=== PATIENT | male | born 1950 | race Caucasian/White ===

== ENCOUNTER 2020-01-19 15:12 | Emergency (ER) | payer MEDICARE, MEDICAID, SELFPAY ==
[2020-01-19] VITALS (8 sets, daily range): BP systolic 150–182; BP diastolic 92–107; PULSE 20–64; RESP 16–59; TEMP 36.4–36.6; O2SAT 95–99; BMI 27.8
--- NOTE | 2020-01-19 15:41 | XRR_ITS ---
PROCEDURE INFORMATION: Exam: XR Chest, 1 View Exam date and time: 01/19/2020 3:44 PM Age: 69 years old Clinical indication: Shortness of breath; Patient HX: C/O SOB TECHNIQUE: Imaging protocol: XR of the chest Views: 1 view. COMPARISON: CR Chest 1 [place] [id number] 01/13/2019 7:17 PM FINDINGS: Lungs: There is mild bibasilar ground-glass opacity new since the prior exam compatible with mild pneumonitis versus atelectasis. There is no lobar consolidation. Pulmonary vascularity is within normal limits. Unchanged punctate calcified granulomas are noted in the lungs. Pleural space: Trace left pleural effusion versus pleural thickening is noted. There is no pneumothorax. Heart/Mediastinum: Unremarkable. No cardiomegaly. Bones/joints: No acute abnormality. XR/XR chest 1V portable [id number] IMPRESSION: There is mild bibasilar ground-glass opacity new since the prior exam compatible with mild pneumonitis versus atelectasis.
--- NOTE | 2020-01-19 15:43 | ECG_ITS ---
[facility] Test Date: 2020-01-19 Pat Name: Colton Ramirez Department: Room: Gender: Male Other Sports Official: : 1950 Requested By: Viviana Moraes Order Number: [id number] Carrie MD: Kim Schaefer M.D. Measurements Intervals [place] Rate: 58 P: 83 HI: 122 QRS: -8 QRSD: 100 T: 207 QT: 417 QTc: 411 Interpretive Statements SINUS BRADYCARDIA WITH OCCASIONAL SUPRAVENTRICULAR PREMATURE COMPLEXES MINIMAL VOLTAGE CRITERIA FOR LVH, CONSIDER NORMAL VARIANT [MEETS CRITERIA IN ONE OF: R(aVL), S(V1), R(V5), R(V5/V6)+S(V1)] ST DEVIATION AND MODERATE T-WAVE ABNORMALITY, CONSIDER LATERAL ISCHEMIA [-0.1+ mV T WAVE IN I/aVL/V5/V6] Compared to ECG 11/18/2015 10:51:48 T-wave abnormality now present Possible ischemia now present Sinus rhythm no longer present Electronically Signed On 01-19-2020 17:42:03 CDT by Kim Schaefer M.D. [email or web address]/store/NU/[id number] f
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
[2020-01-19] MEDS: ipratropium-albuterol 3 mL Neb INHALATION (16:02)
[2020-01-19 16:06] LABS: ABG PCO2 31.7 mmHg (35-45); Blood Gas Allen Test Pos; Blood Gas Operator Identificat CAK; Blood Gas Sample Site Radial, left; Blood Gas Sample Type Arterial; HCO3 ABG 24.5 mmol/L (22-26); Oxygen Device ROOM AIR; PO2 ABG 97.8 mmHg (80.0-100.0)
[2020-01-19 16:53] LABS: Basophils % 0.5 %; Eosinophils # 0.2 10^3/uL (0.0-0.8); Eosinophils % 2.2 %; Hematocrit 42.9 % (42.0-52.0); Hemoglobin 15.1 g/dL (11.7-16.6); Lymphocytes # 2.1 10^3/uL (0.8-4.8); Lymphocytes % 26.2 %; Mean Corpuscular HGB Conc 35.2 g/dL (30.0-36.0); Mean Corpuscular Volume 96.6 fL (80-94); Monocytes # 0.9 10^3/uL (0.2-0.9); Monocytes % 10.9 %; Neutrophils # 4.68 10^3/uL (1.8-7.7); Neutrophils % 59.8 %; Nucleated Red Blood Cells % 0 %; Platelet Count 240 10^3/cmm (130-400); Red Blood Count 4.44 10^6/uL (4.1-5.3); Red Cell Distribution Width 12.5 % (12.1-15.1); White Blood Count 7.8 10^3/uL (4.0-10.0)
[2020-01-19 17:16] LABS: Troponin(5th) Baseline 10 ng/L (0-15)
--- NOTE | 2020-01-19 17:27 | PC.NURSE ---
Pt moved to room 8.
[2020-01-19 17:31] LABS: Alanine Aminotransferase 20 U/L (0-41); Albumin Level 4.6 g/dL (3.5-5.2); Alkaline Phosphatase 121 IU/L (40-130); Aspartate Amino Transferase 15 U/L (0-40); Blood Urea Nitrogen 14 mg/dL (8-23); Calcium 9.4 mg/dL (8.5-10.5); Carbon Dioxide 26 mmol/L (22-29); Chloride 88 mmol/L (98-107); Creatinine Clr Calc Pharmacy 103.2484; Globulin 2.4 g/dL (1.3-4.6); Glomerular Filtration Rate 96.4 mL/min (90-130); Glucose 102 mg/dL (65-115); NT Pro B Type Natriuretic Pept 359 pg/mL (0-125); Osmolality Calculated 261 mOsm/kg (285-295); Sodium 125 mmol/L (136-145); Total Bilirubin 0.4 mg/dL (0.15-1.2)
[2020-01-19 17:37] LABS: Add Urine Microscopic? NO
--- NOTE | 2020-01-19 17:43 | ECG_ITS ---
[facility] Test Date: 2020-01-19 Pat Name: Colton Ramirez Department: Room: Gender: Male Cable Tool Driller: : 1950 Requested By: Viviana Moraes Order Number: [id number] Carrie MD: Kim Schaefer M.D. Measurements Intervals [place] Rate: 58 P: 70 MA: 136 QRS: 1 QRSD: 97 T: 44 QT: 395 QTc: 388 Interpretive Statements SINUS BRADYCARDIA Compared to ECG 01/19/2020 15:34:56 T-wave abnormality no longer present Possible ischemia no longer present Electronically Signed On 01-20-2020 18:37:38 CDT by Kim Schaefer M.D. [id number]
[2020-01-19 17:49] LABS: Bilirubin Urine Neg (Negative); Blood Urine Neg (Negative); Glucose Urine UA Norm (Normal); Ketones Urine Negative (Negative); Leukocyte Esterase Urine Negative (Negative); Nitrate Urine Negative (Negative); Protein Urine Neg (Negative); Sulfosalicylic Acid Urine Negative (Negative); Urine Appearance Clear (CLEAR); Urine Color Yellow (Yellow); Urobilinogen Urine Norm (Negative); pH Urine 8 (5-7)
[2020-01-19 18:53] LABS: Troponin 5 2HR 9.67 ng/L (0-15)
[2020-01-19 18:55] LABS: Troponin 5 2HR Delta -0.33 ABS# (0-10)
--- NOTE | 2020-01-19 19:45 | PC.NURSE ---
voided 700 ml clear yellow urine
== END 2020-01-19 20:35 | disposition home or self-care (01) ==
PROVIDERS: Emergency Provider Emergency Medicine
DX: J40 Bronchitis, not specified as acute or chronic (principal); E87.1 Hypo-osmolality and hyponatremia
CPT/HCPCS: 12345; 36415; 36600; 71045; 80053; 81003; 82803; 83880; 84484; 85025; 93005; 94640; 96374; 96375; 99283; 99284; J2930

== ENCOUNTER → 2020-03-24 15:22 | Outpatient (BNVA) | payer MEDICARE, MEDICAID, SELFPAY | PROVIDERS: Referring Provider Nurse Practitioner Family; Visit Provider Podiatrist Foot & Ankle Surgery | DX: M79.671 Pain in right foot (principal); M79.672 Pain in left foot; M89.472 Other hypertrophic osteoarthropathy, left ankle and foot; M89.471 Other hypertrophic osteoarthropathy, right ankle and foot | CPT/HCPCS: 73630 ==

== ENCOUNTER 2021-04-29 16:59 | Emergency (ER) | payer MEDICARE, MEDICAID, SELFPAY ==
--- NOTE | 2021-04-29 17:07 | ECG_ITS ---
[facility] Test Date: 2021-04-29 Pat Name: Colton Ramirez Department: Room: Gender: Male Clinic Cma: : 1950 Requested By: Bobby Tomlinson Order Number: [id number] Carrie MD: Mukund Medeiros M.D. Measurements Intervals [place] Rate: 83 P: 91 MS: 140 QRS: 26 QRSD: 96 T: 57 QT: 360 QTc: 423 Interpretive Statements SINUS RHYTHM WITH FREQUENT SUPRAVENTRICULAR PREMATURE COMPLEXES NONSPECIFIC T-WAVE ABNORMALITY ABNORMAL RHYTHM ECG Compared to ECG 01/19/2020 19:03:19 T-wave abnormality now present Sinus bradycardia no longer present Electronically Signed On 04-29-2021 17:51:54 SCHOOL INSPECTOR by Mukund Medeiros M.D. [id number]
[2021-04-29 17:37] VITALS: BP 157/77; PULSE 75; RESP 18; TEMP 36.9; O2SAT 97; BMI 21.6
[2021-04-29 17:46] LABS: Basophils % 0.3 %; Eosinophils % 0.2 %; Hematocrit 40.3 % (42.0-52.0); Hemoglobin 14.1 g/dL (11.7-16.6); Lymphocytes # 1.4 10^3/uL (0.8-4.8); Lymphocytes % 22.8 %; Mean Corpuscular Hemoglobin 33.6 pg (28.0-34.0); Mean Platelet Volume 8.9 fL (7.4-10.4); Monocytes # 0.8 10^3/uL (0.2-0.9); Monocytes % 13.1 %; Neutrophils # 3.78 10^3/uL (1.8-7.7); Neutrophils % 63.4 %; Nucleated Red Blood Cells % 0 %; Platelet Count 236 10^3/cmm (130-400); Red Cell Distribution Width 12.6 % (12.1-15.1)
[2021-04-29 18:14] LABS: Troponin(5th) Baseline 19 ng/L (0-15)
[2021-04-29 18:21] LABS: Alanine Aminotransferase 22 U/L (0-41); Albumin Level 4.2 g/dL (3.5-5.2); Alkaline Phosphatase 96 IU/L (40-130); Anion Gap 20.8 (5-19); Aspartate Amino Transferase 22 U/L (0-40); Blood Urea Nitrogen 21 mg/dL (8-23); Calcium 8.5 mg/dL (8.5-10.5); Carbon Dioxide 18 mmol/L (22-29); Chloride 94 mmol/L (98-107); Globulin 2.1 g/dL (1.3-4.6); Glomerular Filtration Rate 83.9 mL/min (90-130); Glucose 102 mg/dL (65-115); Magnesium 1.7 mg/dL (1.7-2.3); Osmolality Calculated 271 mOsm/kg (285-295); Potassium 3.8 mmol/L (3.5-5.1); Sodium 129 mmol/L (136-145); Thyroid Stimulating Hormone 1.11 uIU/mL (0.27-4.20); Total Bilirubin 0.2 mg/dL (0.15-1.2); Total Protein 6.3 g/dL (6.6-8.7)
[2021-04-29 20:09] LABS: Troponin 5 2HR 19.78 ng/L (0-15); Troponin 5 2HR Delta 0.78 ABS# (0-10)
--- NOTE | 2021-04-29 21:39 | W.ED.CHESTPA ---
HPI - Chest Pain General: Chief Complaint: Chest Pain Stated Complaint: Heart beat out of Rhythm\Dizzy Time Seen by Provider: 04/29/21 21:39 History of Present Illness: HPI narrative: Patient was referred to the ER by his primary care for concerns of irregular heart rhythm. Patient states that he was at her office last week and then again this week and she noticed the difference in his heart rhythm. She thought he needed to have further evaluation in the emergency room. Patient denies any chest pain or shortness of breath. Patient appears well. Patient does have a history of hypertension and chronic pain syndrome. Patient is a routine smoker. Review of Systems Card: Reports: irregular heart rhythm [facility] ED PFSH: Medical History (Updated 04/29/21 @ 22:02 by VERONICA Cardoza) Hypertension Peripheral neuropathy Social History (Updated 03/24/20 @ 15:32 by Kaylie Reagan LPN) Smoking and tobacco status: current every day smoker Alcohol intake: never Household members: none Physical Exam Const: COMMON NORMALS: average body habitus, patient oriented x3 and alert HENMT: COMMON NORMALS: normocephalic HEAD & SCALP: normocephalic Resp: COMMON NORMALS: normal respiratory effort and clear to auscultation bilaterally EFFORT & INSPECTION: Yes able to speak in complete sentences AUSCULTATION: clear to auscultation bilaterally Cardio: COMMON NORMALS: regular rate RATE: regular rate RHYTHM: abnormal rhythm irregularly irregular GI: COMMON NORMALS: Soft to palpation AUSCULTATION: Yes normoactive bowel sounds PALPATION: Yes Soft to palpation Extremity: COMMON NORMALS: no pedal edema Neuro: COMMON NORMALS: patient oriented x3 SENSORIUM/ORIENTATION: Yes alert Psych: COMMON NORMALS: cooperative Skin: COMMON NORMALS: no rashes or lesions noted GENERAL SKIN EXAM: no rashes or lesions noted Course ED course: 2099, reviewed second EKG with Dr. Heller. Is noted to have atrial fibrillation. His first EKG showed a sinus rhythm. Due to the history noted in HPI suspect patient probably has paroxysmal atrial fibrillation. Dr. Heller recommended we talk with cardiology for further recommendations of treatment. 2114, talk with Dr. Schaefer, security administrator, regarding patient's new onset paroxysmal atrial fibrillation. No signs of severe distress is noted at this time patient is resting comfortably. No signs of heart failure is noted. She recommended that we go ahead and set patient up for a outpatient echocardiogram, start him on some metoprolol tartrate 5 mg daily, and recommended anticoagulation due to his risks relating to his age and hypertension. Vital Signs: Vital signs: Vital Signs Temperature 98.5 F 04/29/21 17:37 Pulse Rate 75 04/29/21 17:37 Respiratory Rate 18 04/29/21 17:37 Blood Pressure 157/77 04/29/21 17:37 Pulse Oximetry 97 04/29/21 17:37 MDM - Chest Pain MDM Narrative: Medical decision making narrative: Patient was sent over by his primary care for irregular rhythm. On exam patient does have some irregular rhythm of the heart with a normal rate. No edema is noted and lungs were clear to auscultation. Patient denied any pain. Vital signs were normal. Differential diagnosis includes but not limited to PVCs, atrial fibrillation, ACS. Laboratory values were unremarkable. Chest x-ray showed no abnormalities. We diagnosed patient with atrial fibrillation paroxysmal and started patient on metoprolol tartrate and apixaban. Patient was set for outpatient echocardiogram for further evaluation of the heart and to rule out a clot in the chambers. Patient will have close follow-up with cardiology, Dr. Schaefer. Reviewed the plan with patient who agreed. Lab Data: Labs: Lab Results 04/29/21 04/29/21 04/29/21 17:30 17:30 17:30 WBC 6.0 10^3/uL 10^3/ uL (4.0-10.0) RBC 4.20 10^6/uL 10^6 /uL (4.1-5.3) Hgb 14.1 g/dL g/dL (11.7-16.6) Hct 40.3 % L % (42.0-52.0) MCV 96.0 fl H fl (80-94) MCH 33.6 pg pg (28.0-34.0) MCHC 35.0 g/dL g/dL (30.0-36.0) RDW 12.6 % % (12.1-15.1) Plt Count 236 10^3/cmm 10^3 /cmm (130-400) MPV 8.9 fL fL (7.4-10.4) Neut % (Auto) 63.4 % % Lymph % (Auto) 22.8 % % Sampson % (Auto) 13.1 % % Eos % (Auto) 0.2 % % Baso % (Auto) 0.3 % % Neut # (Auto) 3.78 10^3/uL 10^3 /uL (1.8-7.7) Lymph # (Auto) 1.4 10^3/uL 10^3/ uL (0.8-4.8) Sampson # (Auto) 0.8 10^3/uL 10^3/ uL (0.2-0.9) Eos # (Auto) 0.0 10^3/uL 10^3/ uL (0.0-0.8) Baso # (Auto) 0.0 10^3/uL 10^3/ uL (0.0-0.1) Nucleated RBC % (a uto) 0 % % Nucleated RBCs # 0.0 /100WBC /100W BC Sodium 129 mmol/L L mmol /L (136-145) Potassium 3.8 mmol/L mmol/L (3.5-5.1) Chloride 94 mmol/L L mmol/ L (98-107) Carbon Dioxide 18 mmol/L L mmol/ L (22-29) Anion Gap 20.8 H (5-19) BUN 21 mg/dL mg/dL (8-23) Creatinine 0.9 mg/dL mg/dL (0.7-1.2) GFR Calculation 83.9 mL/min L mL/ min (90-130) Glucose 102 mg/dL mg/dL (65-115) Calculated Osmolal ity 271 mOsm/kg L mOs m/kg (285-295) Calcium 8.5 mg/dL mg/dL (8.5-10.5) Magnesium 1.7 mg/dL mg/dL (1.7-2.3) Total Bilirubin 0.2 mg/dL mg/dL (0.15-1.2) AST 22 U/L U/L (0-40) ALT 22 U/L U/L (0-41) Alkaline Phosphata se 96 IU/L IU/L (40-130) Troponin T Baselin e 19 ng/L H ng/L (0-15) Troponin T 120 Min [place] Delta Troponin T Total Protein 6.3 g/dL L g/dL (6.6-8.7) Albumin 4.2 g/dL g/dL (3.5-5.2) Globulin 2.1 g/dL g/dL (1.3-4.6) TSH 1.11 uIU/mL uIU/m L (0.27-4.20) 04/29/21 19:37 WBC RBC Hgb Hct MCV MCH MCHC RDW Plt Count MPV Neut % (Auto) Lymph % (Auto) Sampson % (Auto) Eos % (Auto) Baso % (Auto) Neut # (Auto) Lymph # (Auto) Sampson # (Auto) Eos # (Auto) Baso # (Auto) Nucleated RBC % (a uto) Nucleated RBCs # Sodium Potassium Chloride Carbon Dioxide Anion Gap BUN Creatinine GFR Calculation Glucose Calculated Osmolal ity Calcium Magnesium Total Bilirubin AST ALT Alkaline Phosphata se Troponin T Baselin e Troponin T 120 Min [place] 19.78 ng/L H ng/L (0-15) Delta Troponin T 0.78 ABS# ABS# (0-10) Total Protein Albumin Globulin TSH Discharge Plan Discharge Patient Disposition: Home Clinical Impression: Paroxysmal atrial fibrillation Condition: Stable Prescriptions: New Eliquis 5 mg tablet 5 mg PO BID Qty: 60 RF: 0 metoprolol succinate 25 mg tablet extended release 24 hr 25 mg PO DAILY Qty: 30 RF: 0 No Action gabapentin 600 mg tablet 600 mg PO TID RF: 0 hydralazine 50 mg tablet 50 mg PO TID RF: 0 clonidine HCl 0.1 mg tablet 0.05 mg PO BID RF: 0 carbamazepine [Tegretol] 200 mg tablet 200 mg PO BID Qty: 60 RF: 1 prednisone 10 mg tablets,dose pack See Rx Instructions .ROUTE .COMPLEX Qty: 21 RF: 0 Discharge Orders: Discharge ED (Routine); Ordered 04/29/21 Ordered By: Bobby Levin Discharge Diet: Usual diet Discharge Activity: Increase activity as tolerated Patient Instructions: A-fib (Atrial Fibrillation) (ED), Opioid Safety Activity Restrictions/Additional Instructions: Home and rest. Take medication as directed. Drink plenty of water with medication. Follow-up with primary care for further instruction. Case management will contact you with appointment with security administrator. Return to the ER for chest pain, increased shortness of breath, or new concerns. Coding Level of Care Code ED Treer for Stephen Quiles
--- NOTE | 2021-04-29 22:20 | PC.NURSE ---
PO medication given prior to d/c, Red [employer] App systems under problems. Hand written MAR filled out and will be scanned into chart
--- NOTE | 2021-04-29 23:07 | ECG_ITS ---
[facility] Test Date: 2021-04-29 Pat Name: Colton Ramirez Department: Room: Gender: Male Visual Display Manager: : 1950 Requested By: Bobby Tomlinson Order Number: [id number] Carrie MD: Kim Schaefer M.D. Measurements Intervals [place] Rate: 92 P: [place]: QRS: 22 QRSD: 98 T: 48 QT: 364 QTc: 451 Interpretive Statements SINUS RHYTHM WITH FREQUENT SUPRAVENTRICULAR PREMATURE COMPLEXES MODERATE ST DEPRESSION [0.05+ mV ST DEPRESSION] Compared to ECG 04/29/2021 17:25:40 ST (T wave) deviation now present T-wave abnormality no longer present Electronically Signed On 04-30-2021 19:21:50 INSPECTOR ASSEMBLIES AND INSTALLATIONS by Kim Schaefer M.D. [id number]
--- NOTE | 2021-04-30 11:51 | DCPLANNER ---
Addendum entered by Lidia Silverman 06/25/21 09:12: Patient had an outpatient echo scheduled for 06.22.21 - patient did attend appointment. Addendum entered by Lidia Silverman 05/15/21 11:25: Patient had a follow up appointment scheduled for 05.11.21 with [facility], Dr. Schaefer - patient did attend appointment. Original Note: manager qa had message to schedule a follow up appointment for patient with [facility] and an echo cardiogram. manager qa called [facility], spoke with Ana Cristina, gave clinic patients information. A follow up appointment was scheduled for Tuesday May 11, 2021 at 10:[address] Schaefer. manager qa called patient with appointment information.. manager qa also had order to schedule an outpatient echo cardiogram for patient. An outpatient order was faxed to centralized scheduling, who will call patient with appointment information.
== END 2021-04-29 22:21 | disposition home or self-care (01) ==
PROVIDERS: Emergency Provider Nurse Practitioner Family
DX: I48.0 Paroxysmal atrial fibrillation (principal); I10 Essential (primary) hypertension; G89.4 Chronic pain syndrome; G62.9 Polyneuropathy, unspecified; F17.200 Nicotine dependence, unspecified, uncomplicated
CPT/HCPCS: 36415; 80053; 83735; 84443; 84484; 85025; 93005; 99283

== ENCOUNTER 2021-06-22 10:11 | Outpatient (CLI) | payer MEDICARE, MEDICAID, SELFPAY ==
--- NOTE | 2021-06-22 10:16 | USCV_ITS ---
Colton Ramirez Age: 70 Gender: M : 1950 Exam Date: 06/22/2021 10:32 Ordering Phys: Bobby Levin Technologist: SAM Exam Location: [facility] – [place] Indication: Afib BP: 168 / 78 HR: 51 Rhythm: Sinus Technical Quality: Adequate MEASUREMENTS (Male / Female) Normal Values 2D ECHO LV Diastolic Diameter PLAX 2.9 cm 4.2 - 5.9 / 3.9 - 5.3 cm LV Systolic Diameter PLAX 1.8 cm IVS Diastolic Thickness 1.3 cm 0.6 - 1.0 / 0.6 - 0.9 cm IVS Systolic Thickness 1.7 cm LVPW Diastolic Thickness 1.2 cm 0.6 - 1.0 / 0.6 - 0.9 cm LVPW Systolic Thickness 1.4 cm RV Chamber Size 2.2 cm LVOT Diameter 2.1 cm LV Ejection Fraction 2D Teich 73.0 % LV Ejection Fraction MOD 2C 70.9 % LV Ejection Fraction 2C AL 71.3 % LA Diameter 3.2 cm LA Width 4.2 cm LA Height 5.8 cm RA Width 2.9 cm RA Height 5.5 cm Aorta at Sinotubular Diameter 2.7 cm M-MODE Aortic Annulus Diameter 3.6 cm LA Ao Ratio MM 0.9 MV E Point Septal Separation 0.5 cm DOPPLER AV Peak Velocity 186.0 cm/s LVOT Peak Velocity 118.0 cm/s AV Area Cont Eq vti 2.3 cm squared AV Area Cont Eq pk 2.1 cm squared MV Area PHT 4.1 cm squared Mitral E to A Ratio 1.6 MV E' Velocity 37.0 cm/s Mitral E to MV E' Ratio 6.7 Mitral E to LV E' Lateral Ratio 5.8 Mitral E to LV E' Septal Ratio 8.1 TR Peak Velocity 171.8 cm/s TR Peak Gradient 11.8 mmHg TR Mean Velocity 181.2 cm/s TR Mean Gradient 14.0 mmHg TR Velocity Time Integral 76.3 cm TV Peak E Velocity 72.0 cm/s Right Atrial Pressure 3.0 mmHg Pulmonary Artery Systolic Pressu 14.8 mmHg PV Peak Velocity 95.0 cm/s RV Acceleration Time 0.1 s RV Ejection Time 0.3 s RV AcT/ET 0.4 FINDINGS Left Ventricle Normal left ventricular size, systolic function and wall thickness, with no regional wall motion abnormalities. Left ventricular ejection fraction is estimated at 66 %. Normal diastolic function. Right Ventricle Normal right ventricular size and systolic function. Right ventricular systolic pressure 23 mmHg. Right Atrium Normal right atrial size. Left Atrium Normal left atrial size. Mitral Valve Mild mitral annular calcification. Mildly thickened mitral valve. No mitral valve stenosis. Trace mitral valve regurgitation. Aortic Valve Mildly thickened and trileaflet aortic valve. No aortic valve stenosis. No aortic valve regurgitation. Tricuspid Valve Structurally normal tricuspid valve. No tricuspid valve stenosis. Trace tricuspid valve regurgitation. Pulmonic Valve Structurally normal pulmonic valve. No pulmonary valve stenosis. Trace pulmonary valve regurgitation. Pericardium No pericardial effusion. Aorta Normal size aortic root and proximal ascending aorta. Normal sized inferior vena cava. CONCLUSIONS 1. Normal left ventricular size, systolic function and wall thickness, with no regional wall motion abnormalities. Left ventricular ejection fraction is estimated at 66 %. Normal diastolic function. 2. Normal right ventricular size and systolic function. 3. No significant valvular abnormality. 4. Pulmonary artery pressure estimated at 23 mm Hg. 5. No prior similar studies to compare. Kim Schaefer MD (Electronically Signed) Final Date: 28 June 2021 11:47 S
== END 2021-06-22 10:12 | disposition home or self-care (01) ==
LOC: RAD 10:12
PROVIDERS: PCP Family Medicine; Visit Provider Nurse Practitioner Family
DX: I48.91 Unspecified atrial fibrillation (principal)
CPT/HCPCS: 93306

== ENCOUNTER 2022-04-03 14:08 | Emergency (ER) | payer MEDICARE, MEDICAID, SELFPAY ==
[2022-04-03 14:12] VITALS: BP 125/74; PULSE 67; RESP 22; TEMP 35.8; O2SAT 97; BMI 22.4
--- NOTE | 2022-04-03 14:40 | ECG_ITS ---
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 Measurements Intervals Ayden Rate: 84 P: 0 NM: 0 QRS: 37 QRSD: 97 T: 38 QT: 357 QTc: 423 Interpretive Statements ATRIAL FIBRILLATION WITH ABERRANT CONDUCTION OR VENTRICULAR PREMATURE COMPLEXES ABNORMAL RHYTHM ECG Compared to ECG 04/29/2021 21:32:20 Ventricular premature complex(es) now present Aberrant conduction of supraventricular beat(s) now present Sinus rhythm no longer present ST (T wave) deviation no longer present Electronically Signed On 04-04-2022 8:19:49 [employer] by Kim Schaefer M.D. [email or web address]
--- NOTE | 2022-04-03 14:44 | PC.NURSE ---
EKG completed in triage and shown to Dr. Renteria prior to placing in chart
--- NOTE | 2022-04-03 14:58 | XRR_ITS ---
PROCEDURE INFORMATION: Exam: XR Chest Exam date and time: 04/03/2022 3:09 PM Age: 71 years old Clinical indication: Cough; Additional info: SOB TECHNIQUE: Imaging protocol: Radiologic exam of the chest. Views: 1 view. COMPARISON: CR XR chest 1V portable [id number] 01/19/2020 3:53 PM FINDINGS: Lungs: Unremarkable. No consolidation. Pleural spaces: Unremarkable. No pleural effusion. No pneumothorax. Heart/Mediastinum: Unremarkable. No cardiomegaly. Bones/joints: Unremarkable. XR/XR chest 1V portable [id number] IMPRESSION: No acute findings.
[2022-04-03 15:11] LABS: Basophils % 0.5 %; Eosinophils # 0.1 10^3/uL (0.0-0.8); Eosinophils % 1.4 %; Hematocrit 44.1 % (42.0-52.0); Hemoglobin 15.3 g/dL (11.7-16.6); Lymphocytes # 1.5 10^3/uL (0.8-4.8); Lymphocytes % 24.1 %; Mean Corpuscular HGB Conc 34.7 g/dL (30.0-36.0); Mean Corpuscular Hemoglobin 32.1 pg (28.0-34.0); Mean Corpuscular Volume 92.6 fl (80-94); Monocytes # 0.9 10^3/uL (0.2-0.9); Monocytes % 13.9 %; Neutrophils # 3.73 10^3/uL (1.8-7.7); Neutrophils % 59.6 %; Nucleated Red Blood Cells % 0 %; Platelet Count 283 10^3/cmm (130-400); Red Blood Count 4.76 10^6/uL (4.1-5.3); White Blood Count 6.3 10^3/uL (4.0-10.0)
--- NOTE | 2022-04-03 15:41 | ED_ITS ---
HPI - SOB/Dyspnea General: Chief Complaint: Shortness of Breath/Dyspnea Stated Complaint: SOB Time Seen by Provider: 04/03/22 15:24 Source: patient and other History of Present Illness: HPI Narrative: 71-year-old male who presents to the emergency room with complaints of shortness of breath. He states has been short of breath for the last 3 weeks he did seem to be getting worse. He was seen by his primary care doctor put on steroids and oral antibiotics cough worsens when he lays down. MD elicited complaint: shortness of breath and cough Pertinent past history: COPD Onset (ago): week(s) (3) Timing: intermittent Severity: mild Exacerbating factors: exertion and coughing Relieving factors: nothing Known history of: COPD Associated symptoms: Deny abdominal pain, chest congestion, chest pain, cough, diaphoresis, dizziness, extremity pain, fever(s), hemoptysis, lightheadedness, myalgias, nausea, orthopnea, palpitations, paresthesias, polydipsia, polyuria, rash, sense of impending doom, syncope or vomiting Treatment prior to arrival: other (Antibiotics and steroids) Review of Systems Const: Denies: fever(s) or diaphoresis Card: Denies: chest pain, palpitations, lightheadedness, syncope or orthopnea Resp: Denies: hemoptysis or chest congestion GI: Denies: abdominal pain, nausea or vomiting Musc: Denies: extremity pain Neuro: Denies: dizziness Endo: Denies: polyuria or polydipsia PFSH ED PFSH: Medical History Hypertension PAC (premature atrial contraction) Peripheral neuropathy Social History Smoking and tobacco status: current every day smoker Alcohol intake: never Household members: none Physical Exam Const: GENERAL APPEARANCE: cooperative and comfortable ORIENTATION/CONSCIOUSNESS: Yes awake, Yes oriented to person, Yes oriented to place and Yes oriented to time HENMT: COMMON NORMALS: normocephalic, atraumatic, hearing grossly normal bilaterally, external ears normal, EAC's normal, TM's normal bilaterally, Normal nasal mucous membranes and turbinates present, moist oral mucous membranes and oropharynx normal HEAD & SCALP: normocephalic and atraumatic NOSE: Normal nasal mucous membranes and turbinates present EXTERNAL EAR: Yes external ears normal EXTERNAL AUDITORY CANAL: EAC's normal TYMPANIC MEMBRANE: TM's normal bilaterally Eye: COMMON NORMALS: Equal, round and reactive pupils present, EOMs intact bilaterally, conjunctivae normal and no scleral icterus CONJUNCTIVA: Yes conjunctivae normal PUPIL: Yes Equal, round and reactive pupils present Neck/C-Spine: COMMON NORMALS: full ROM, no lymphadenopathy, supple and no JVD Lymph: LYMPHATIC: no lymphadenopathy noted and no lymphedema noted Resp: COMMON NORMALS: normal respiratory effort, No retractions and No use of accessory muscles AUSCULTATION: rhonchi and wheezes Cardio: COMMON NORMALS: no JVD, regular rate, regular rhythm and No murmurs present (Cardio) RATE: regular rate RHYTHM: regular rhythm GI: COMMON NORMALS: Soft to palpation and No hepatosplenomegaly present AUSCULTATION: Yes normoactive bowel sounds PALPATION: Yes Soft to palpation, No Tenderness to palpation present (GI), No Guarding due to palpation present (GI) and Yes No hepatosplenomegaly present Extremity: COMMON NORMALS: normal to inspection, capillary refill normal, no clubbing, cyanosis or edema, no calf tenderness and no pedal edema Neuro: SENSORIUM/ORIENTATION: Yes oriented to person, Yes oriented to place and Yes oriented to time Skin: COMMON NORMALS: no rashes or lesions noted GENERAL SKIN EXAM: no rashes or lesions noted Course Vital Signs: Vital signs: Vital Signs Temperature 96.5 F L 04/03/22 14:12 Pulse Rate 95 04/03/22 15:54 Respiratory Rate 18 04/03/22 15:54 Blood Pressure 126/85 04/03/22 15:54 Pulse Oximetry 95 04/03/22 15:54 Oxygen Delivery Me thod 04/03/22 15:54 MDM - SOB/Dyspnea Medical Decision Making Acute exacerbation of COPD with no evidence of pneumonia. We will start patient on Spiriva as well as albuterol. Steroid taper follow-up with his primary care doctor within the next week for further adjustment of medications may need long-acting beta agonist inhaled corticosteroid combination. Medical Records I reviewed the patient's medical records. Lab Data I reviewed the patient's lab results. 04/03/22 15:00 04/03/22 15:00 Labs/Radiology: Radiology Impressions Chest X-Ray 04/03/22 14:58 IMPRESSION: No acute findings. Laboratory Results WBC 6.3 10^3/uL (4.0-10.0) 04/03/22 15:00 RBC 4.76 10^6/uL (4.1-5.3) 04/03/22 15:00 Hgb 15.3 g/dL (11.7-16.6) 04/03/22 15:00 Hct 44.1 % (42.0-52.0) 04/03/22 15:00 MCV 92.6 fl (80-94) 04/03/22 15:00 MCH 32.1 pg (28.0-34.0) 04/03/22 15:00 MCHC 34.7 g/dL (30.0-36.0) 04/03/22 15:00 RDW 12.0 % (12.1-15.1) L 04/03/22 15:00 Plt Count 283 10^3/cmm (130-400) 04/03/22 15:00 MPV 9.0 fL (7.4-10.4) 04/03/22 15:00 Neut % (Auto) 59.6 % 04/03/22 15:00 Lymph % (Auto) 24.1 % 04/03/22 15:00 Marion % (Auto) 13.9 % 04/03/22 15:00 Eos % (Auto) 1.4 % 04/03/22 15:00 Baso % (Auto) 0.5 % 04/03/22 15:00 Neut # (Auto) 3.73 10^3/uL (1.8-7.7) 04/03/22 15:00 Lymph # (Auto) 1.5 10^3/uL (0.8-4.8) 04/03/22 15:00 Marion # (Auto) 0.9 10^3/uL (0.2-0.9) 04/03/22 15:00 Eos # (Auto) 0.1 10^3/uL (0.0-0.8) 04/03/22 15:00 Baso # (Auto) 0.0 10^3/uL (0.0-0.1) 04/03/22 15:00 Nucleated RBC % (auto) 0 % 04/03/22 15:00 Nucleated RBCs # 0.0 /100WBC 04/03/22 15:00 Sodium 131 mmol/L (136-145) L 04/03/22 15:00 Potassium 3.4 mmol/L (3.5-5.1) L 04/03/22 15:00 Chloride 97 mmol/L (98-107) L 04/03/22 15:00 Carbon Dioxide 26 mmol/L (22-29) 04/03/22 15:00 Anion Gap 11.4 (5-19) 04/03/22 15:00 BUN 21 mg/dL (8-23) 04/03/22 15:00 Creatinine 1.0 mg/dL (0.7-1.2) 04/03/22 15:00 GFR Calculation 74.1 mL/min (90-130) L 04/03/22 15:00 Glucose 116 mg/dL (65-115) H 04/03/22 15:00 Calculated Osmolality 276 mOsm/kg (285-295) L 04/03/22 15:00 Calcium 9.7 mg/dL (8.5-10.5) 04/03/22 15:00 Total Bilirubin 0.7 mg/dL (0.15-1.2) 04/03/22 15:00 AST 16 U/L (0-40) 04/03/22 15:00 ALT 20 U/L (0-41) 04/03/22 15:00 Alkaline Phosphatase 87 U/L (40-130) 04/03/22 15:00 NT-Pro-B Natriuret Pep 591 pg/mL (0-125) H 04/03/22 15:00 Total Protein 6.9 g/dL (6.6-8.7) 04/03/22 15:00 Albumin 4.0 g/dL (3.5-5.2) 04/03/22 15:00 Globulin 2.9 g/dL (1.3-4.6) 04/03/22 15:00 Coronavirus 229E (PCR) Not detected (NOT DETECT) 04/03/22 15:43 SARS-CoV-2 (PCR) Not detected (NOT DETECT) 04/03/22 15:43 Discharge Plan Discharge Patient Disposition: Home Clinical Impression: Acute exacerbation of chronic obstructive airways disease Condition: Stable Prescriptions: New Medrol (Horace) 4 mg tablets,dose pack See Rx Instructions .ROUTE .COMPLEX Qty: 21 0RF Rx Instructions: orally per package directions albuterol sulfate 90 mcg/actuation HFA aerosol inhaler 2 inh INHALATION Q4H PRN (Reason: shortness of breath or wheezing) Qty: 18 0RF Spiriva Respimat 1.25 mcg/actuation mist 2 inh inhalation DAILY Qty: 4 0RF No Action gabapentin 600 mg tablet 600 mg PO TID clonidine HCl 0.1 mg tablet 0.05 mg PO BID hydralazine 50 mg tablet 50 mg PO BID prednisone 10 mg tablets,dose pack See Rx Instructions PO .COMPLEX PRN Rx Instructions: orally per package directions PO PRN; furosemide 20 mg tablet 20 mg PO PRN (Reason: edema) Eliquis 5 mg tablet 5 mg PO BID Qty: 180 1RF metoprolol succinate 50 mg tablet extended release 24 hr 50 mg PO DAILY Qty: 30 1RF Rx Instructions: Must have follow-up for further refills Discharge Orders: Discharge ED (Routine); Ordered 04/03/22 Ordered By: Alvarez Caba Referrals: Mychal Dickerson MD [Primary Care Provider] - Discharge Diet: Usual diet Discharge Activity: Increase activity as tolerated Patient Instructions: COPD (Chronic Obstructive Pulmonary Disease) (ED), Opioid Safety, Pain Management Activity Restrictions/Additional Instructions: You were seen for exacerbation of COPD. Recommend that you use a steroid oral taper beginning tomorrow use albuterol 2 puffs every 4 hours as needed additionally start on the Spiriva 2 puffs each day in the morning. Follow-up with your primary care doctor within the next week. Coding Level of Care Code ED Sr. [employer] S[employer] Manager for Stephen Quiles
[2022-04-03 15:54] VITALS: BP 126/85; PULSE 95; RESP 18; O2SAT 95
[2022-04-03 15:54] LABS: Alanine Aminotransferase 20 U/L (0-41); Alkaline Phosphatase 87 U/L (40-130); Anion Gap 11.4 (5-19); Aspartate Amino Transferase 16 U/L (0-40); Blood Urea Nitrogen 21 mg/dL (8-23); Calcium 9.7 mg/dL (8.5-10.5); Carbon Dioxide 26 mmol/L (22-29); Chloride 97 mmol/L (98-107); Globulin 2.9 g/dL (1.3-4.6); Glomerular Filtration Rate 74.1 mL/min (90-130); Glucose 116 mg/dL (65-115); NT Pro B Type Natriuretic Pept 591 pg/mL (0-125); Osmolality Calculated 276 mOsm/kg (285-295); Potassium 3.4 mmol/L (3.5-5.1); Sodium 131 mmol/L (136-145); Total Bilirubin 0.7 mg/dL (0.15-1.2); Total Protein 6.9 g/dL (6.6-8.7)
[2022-04-03 17:34] LABS: Adenovirus Not Detected (NOT DETECT); Chlamydia Pneumoniae Not Detected (NOT DETECT); Coronavirus 229E,HKU1,NL63,OC4 Not Detected (NOT DETECT); Human Metapneumovirus Not Detected (NOT DETECT); Human Rhinovirus/Enterovirus Not Detected (NOT DETECT); Influenza A Not Detected (NOT DETECT); Influenza A H1 Not Detected (NOT DETECT); Influenza A H1-2009 Not Detected (NOT DETECT); Influenza A H3 Not Detected (NOT DETECT); Influenza B Not Detected (NOT DETECT); Mycoplasma Pneumoniae Not Detected (NOT DETECT); Parainfluenza Virus Type 1 Not Detected (NOT DETECT); Parainfluenza Virus Type 2 Not Detected (NOT DETECT); Parainfluenza Virus Type 3 Not Detected (NOT DETECT); Parainfluenza Virus Type 4 Not Detected (NOT DETECT); Respiratory Syncytial Virus A Not Detected (NOT DETECT); Respiratory Syncytial Virus B Not Detected (NOT DETECT); SARS-COV-2 Not Detected (NOT DETECT)
== END 2022-04-03 16:09 | disposition home or self-care (01) ==
PROVIDERS: Emergency Medicine; Emergency Provider Family Medicine; PCP Family Medicine
DX: J44.1 Chronic obstructive pulmonary disease with (acute) exacerbation (principal); Z79.01 Long term (current) use of anticoagulants; Z20.822 Contact with and (suspected) exposure to COVID-19; I10 Essential (primary) hypertension; F17.210 Nicotine dependence, cigarettes, uncomplicated
CPT/HCPCS: 71045; 80053; 83880; 85025; 87635; 93005; 96374; 99285; J2930